=== PATIENT | female | born 1925 | race Caucasian/White ===

== ENCOUNTER 2017-01-18 08:05 | Day surgery (SDC) | payer MEDICARE ==
[2017-01-18 08:47] LABS: ABSOLUTE BASOPHILS # (AUTO) 0.1 10^3/uL (0.0-0.2); ABSOLUTE EOSINOPHILS # (AUTO) 0.3 10^3/uL (0.0-0.6); ABSOLUTE NEUT (AUTO) 7.4 10^3/uL (1.7-8.2); BASOPHILS % (AUTO) 0.8 % (0-2); EOSINOPHILS % (AUTO) 2.6 % (0-6); HEMATOCRIT 37.2 % (36.0-47.0); HEMOGLOBIN 11.6 g/dL (12.0-15.5); HGB HCT DIFFERENCE -2.4; LYMPHOCYTES % (AUTO) 10.4 % (13-45); MEAN CORPUSCULAR HEMOGLOBIN 28.8 pg (27.0-33.4); MEAN CORPUSCULAR HGB CONC 31.1 g/dL (32.0-36.0); MEAN CORPUSCULAR VOLUME 93 fl (80-97); MONOCYTES % (AUTO) 10.2 % (3-13); RED BLOOD COUNT 4.02 10^6/uL (3.72-5.28); RED CELL DISTRIBUTION WIDTH 15.3 % (11.5-14.0); WHITE BLOOD COUNT 9.7 10^3/uL (4.0-10.5)
[2017-01-18 09:00] LABS: PROTHROMBIN TIME 13.8 SEC (11.4-15.4)
[2017-01-18 09:01] LABS: PARTIAL THROMBOPLASTIN TIME 29.5 SEC (23.5-35.8)
[2017-01-18 09:11] LABS: BLOOD UREA NITROGEN 46 mg/dL (7-20); CREATININE RESULT 1.38 mg/dL (0.52-1.25)
[2017-01-18 11:17] LABS: BLOOD UREA NITROGEN 46 mg/dL (7-20); CREATININE RESULT 1.38 mg/dL (0.52-1.25)
[2017-01-18 11:24] LABS: ALANINE AMINOTRANSFERASE 27 U/L (9-52); ALBUMIN 3.4 g/dL (3.5-5.0); ALKALINE PHOSPHATASE 75 U/L (38-126); ANION GAP 11 (5-19); ASPARTATE AMINO TRANSFERASE 22 U/L (14-36); BILIRUBIN,DIRECT 0.3 mg/dL (0.0-0.4); BILIRUBIN,TOTAL 0.5 mg/dL (0.2-1.3); CALCIUM 9.3 mg/dL (8.4-10.2); CARBON DIOXIDE 35 mmol/L (22-30); CHLORIDE 97 mmol/L (98-107); GLUCOSE 96 mg/dL (75-110); POTASSIUM 4.9 mmol/L (3.6-5.0); SODIUM 142.9 mmol/L (137-145); TOTAL PROTEIN 6.3 g/dL (6.3-8.2)
[2017-01-18 11:35] LABS: FLUID APPEARANCE HAZY; FLUID RBC AVERAGE 332.5; FLUID RBC DILUENT USED NONE USED; FLUID RBC DILUTION FACTOR 1; FLUID RBC SIDE 1 328; FLUID RBC SIDE 2 337; FLUID TYPE PLEURAL; TOTAL RBC SQUARES COUNTED FLD 25
--- NOTE | 2017-01-18 11:46 | RADIOLOGY REPORT (SQ) ---
EXAM DESCRIPTION: CHEST SINGLE VIEW COMPLETED DATE/TIME: 01/18/2017 10:46 am REASON FOR STUDY: S/P RT THORACENTESIS COMPARISON: None. EXAM PARAMETERS: NUMBER OF VIEWS: One view. TECHNIQUE: Single frontal radiographic view of the chest acquired. RADIATION DOSE: NA LIMITATIONS: None. FINDINGS: LUNGS AND PLEURA: There are bilateral pleural effusions. No masses are seen. MEDIASTINUM AND HILAR STRUCTURES: No masses. Contour normal. HEART AND VASCULAR STRUCTURES: Cardiomegaly with no evidence of failure. BONES: No acute findings. HARDWARE: None in the chest. OTHER: No other significant finding. IMPRESSION: Cardiomegaly with bilateral pleural effusions but no matt CHF. No pneumothorax is seen . TECHNICAL DOCUMENTATION: JOB ID: [id number]
--- NOTE | 2017-01-18 13:38 | RADIOLOGY REPORT (SQ) ---
EXAM DESCRIPTION: CHEST SINGLE VIEW COMPLETED DATE/TIME: 01/18/2017 1:17 pm REASON FOR STUDY: 2 HOURS S/P RT THORACENTESIS COMPARISON: AP chest 01/18/2017 EXAM PARAMETERS: NUMBER OF VIEWS: One view. TECHNIQUE: Single frontal radiographic view of the chest acquired. RADIATION DOSE: NA LIMITATIONS: None. FINDINGS: LUNGS AND PLEURA: Patient is 2 hours post thoracentesis on the right, with removal of 1800 mL of fluid. No pneumothorax. There is airspace disease in the right lower lobe likely pulmonary e eros in the re-expanded lung parenchyma. There are trace residual pleural effusions. Left retrocardiac airspace disease is present atelectasi s versus pneumonia. No left pneumothorax. MEDIASTINUM AND HILAR STRUCTURES: No masses. Contour normal. HEART AND VASCULAR STRUCTURES: Stable mild cardiomegaly BONES: No acute findings. HARDWARE: None in the chest. OTHER: No other significant finding. IMPRESSION: No pneumothorax 2 hours post right-sided thoracentesis. There is airspace disease in th e right lower lobe, likely re-expansion pulmonary edema. TECHNICAL DOCUMENTATION: JOB ID: [id number]
[2017-01-18 13:47] VITALS: BP 118/63
--- NOTE | 2017-01-18 13:54 | RADIOLOGY REPORT (SQ) ---
EXAM DESCRIPTION: U/S THORACENTESIS WITH IMAGING COMPLETED DATE/TIME: 01/18/2017 10:43 am REASON FOR STUDY: RT PLEURAL EFFUSION J90 PLEURAL EFFUSION, NOT ELSEWHERE CLASSIFIED Z79.01 LONG T ERM (CURRENT) USE OF ANTICOAGULANTS COMPARISON: None. LIMITATIONS: None. PROCEDURE: Procedure, risks, benefit, and alternative explained to patient who then gave written con sent. The posterior right chest wall was marked using ultrasound guidance. A time-out was called fo r correct marking verification. Chest prepped and draped using sterile technique. Local anesthesia a chieved using 5.5 ml of 1% lidocaine injection. A 5fr needle/catheter set was introduced into the po sterior right pleural space. Fluid was aspirated. The catheter was removed and the entry site was c overed with sterile bandage. No immediate complications noted. Fluid was sent for testing Images acquired during the procedure were stored on PACS. FINDINGS: ENTRY SITE: Posterior right chest FLUID VOLUME: 1800 mL of clear yellow fluid FLUID ANALYSIS: Yes, sent for testing OTHER: Post procedure chest film dictated separately demonstrates no evidence of right-sided pneumoth orax IMPRESSION: SUCCESSFUL THORACENTESIS USING ULTRASOUND GUIDANCE. COMMENT: Patient medication list reviewed: Yes- Quality ID# [id number]:Eligible professional attests to doc umenting in the medical record they obtained, updated, or reviewed the patient's current medications. Quality ID #[id number]: Final reports for procedures using fluoroscopy that document radiation exposure philomena madeleine, or exposure time and number of fluorographic images (if radiation exposure indices are not avail able) TECHNICAL DOCUMENTATION: JOB ID: [id number] [employer]- All Rights Reserved
== END 2017-01-18 13:20 | disposition home or self-care (01) ==
LOC: RAD 08:05
PROVIDERS: ATTEND Internal Medicine Critical Care Medicine
PROC: 0W993ZZ Drainage of Right Pleural Cavity, Percutaneous Approach (ICD-10-PCS; principal; 2017-01-18)
DX: J90 Pleural effusion, not elsewhere classified (principal); J45.909 Unspecified asthma, uncomplicated; R09.02 Hypoxemia; R06.09 Other forms of dyspnea; F51.04 Psychophysiologic insomnia; Z79.01 Long term (current) use of anticoagulants; Z79.51 Long term (current) use of inhaled steroids; Z85.3 Personal history of malignant neoplasm of breast; Z86.79 Personal history of other diseases of the circulatory system; Z87.01 Personal history of pneumonia (recurrent); Z99.81 Dependence on supplemental oxygen
CPT/HCPCS: 32555; 36415; 71010; 80053; 82565; 82945; 83615; 84157; 84520; 85025; 85610; 85730; 87015; 87070; 87075; 87101; 87116; 87205; 87206; 88305; 89050